=== PATIENT | female | born 1950 | race Hispanic/Latino ===

== ENCOUNTER 2017-02-10 09:16 | Emergency (ER) | payer MEDICARE ==
[2017-02-10 12:15] LABS: Alanine Aminotransferase 12 units/L (7-56); Albumin 3.9 g/dL (3.9-5); Albumin/Globulin Ratio 1.3 %; Alkaline Phosphatase 81 units/L (35-129); Anion Gap 17 mmol/L; BUN/Creatinine Ratio 26.25; Bilirubin,Total 0.2 mg/dL (0.1-1.2); Blood Urea Nitrogen 21 mg/dL (7-17); Calcium 9.4 mg/dL (8.4-10.2); Carbon Dioxide 25 mmol/L (22-30); Chloride 100.9 mmol/L (98-107); Glucose 101 mg/dL (65-100); Lipase 35 units/L (13-60); Potassium 5.1 mmol/L (3.6-5.0); Sodium 138 mmol/L (137-145)
[2017-02-10 12:27] LABS: Basophils % (Auto) 1.2 % (0.0-1.8); Eosinophils % (Auto) 2.4 % (0.0-4.3); Hematocrit 39.9 % (30.3-42.9); Hemoglobin 12.9 gm/dl (10.1-14.3); Mean Corpuscular HGB Conc 32 % (30-34); Mean Corpuscular Volume 78 fl (79-97); Platelet Count 254 K/mm3 (140-440); Red Blood Count 5.14 M/mm3 (3.65-5.03); Red Cell Distribution Width 13.6 % (13.2-15.2)
[2017-02-10 12:33] LABS: Bilirubin,Urine NEG (Negative); Blood,Urine MOD (Negative); Ketones,Urine NEG (Negative); Leukocyte Esterase,Urine MOD (Negative); Nitrite,Urine NEG (Negative); Protein,Urine <15 mg/dL mg/dL (Negative); Urobilinogen,Urine < 2.0 mg/dL (<2.0)
[2017-02-10 13:02] LABS: Mean Corpuscular Hemoglobin 25 pg (28-32)
--- NOTE | 2017-02-10 17:13 | Emergency Department Report ---
HPI - General Chief Complaint: Abdominal Pain Time Seen by Provider: 02/10/17 16:31 - HPI HPI: Room 3 The patient is a 66-year-old female presenting with chief complaint of abdominal pain. Patient states for the past 5 days she's had intermittent pain in the right lower quadrant. The patient occasionally has pain in the right flank. Patient describes pain as sharp at times and all others. Patient admits to nausea but denies vomiting. Patient admits to occasional dysuria but denies hematuria or fever. Patient currently gives her pain a score of 4/10. Patient also admits to constant rectal itching for the past 4 days Location: [see above] Duration: [see above] Quality: [see above] Severity: 4/10 Modifying factors: [see above] Context: [see above] Mode of transportation: Patient drove herself to the emergency department and there are no visitors present ED Past Medical Hx - Past Medical History Previous Medical History?: Yes Hx Headaches / Migraines: Yes Hx Asthma: Yes Additional medical history: chronic bronchitis - Surgical History Past Surgical History?: Yes Additional Surgical History: back surgery, hysterectomy, nasal surgery, bladder surgery, cataract removal both eyes - Family History Family history: no significant - Social History Smoking Status: Former Smoker (none 15 years) Substance Use Type: None - Medications Home Medications: Home Medications Medication Instructions Recorded Confirmed Last Taken Type Butalb/Acetamin/Caff 50-325-40 1 each PO Q4H PRN #20 tablet 12/05/13 Unknown Rx [Fioricet] Nitrofurantoin Chase/M-Cryst 100 mg PO Q12HR #14 capsule 10/04/15 Unknown Rx [Macrobid CAP] Hydrocortisone [Anucort-HC SUPPOS] 25 mg RC BID #20 supp.rect 02/10/17 Unknown Rx Ibuprofen [Motrin 800 MG tab] 800 mg PO Q8HR PRN #20 tablet 02/10/17 Unknown Rx Ondansetron [Zofran ODT TAB] 8 mg PO Q8HR #20 tab.rapdis 02/10/17 Unknown Rx Sulfamethoxazole/Trimethoprim 1 each PO BID #14 tablet 02/10/17 Unknown Rx [Bactrim DS TAB] traMADol [Ultram] 50 mg PO Q6HR PRN #14 tablet 02/10/17 Unknown Rx ED Review of Systems ROS: Stated complaint: STOMACH PAIN/RETURNING ITCH Other details as noted in HPI Comment: All other systems reviewed and negative Constitutional: denies: chills, fever Eyes: denies: eye pain, eye discharge, vision change ENT: denies: ear pain, throat pain Respiratory: denies: cough, shortness of breath, wheezing Cardiovascular: denies: chest pain, palpitations Endocrine: no symptoms reported Gastrointestinal: abdominal pain, nausea. denies: vomiting Genitourinary: denies: urgency, dysuria, discharge Musculoskeletal: back pain Skin: denies: rash, lesions Neurological: denies: headache, weakness, paresthesias Psychiatric: denies: anxiety, depression Hematological/Lymphatic: denies: easy bleeding, easy bruising Physical Exam - Physical Exam Vital Signs: Vital Signs 02/10/17 09:42 Temperature 98.7 F Pulse Rate 70 Respiratory 20 Rate Blood Pressure 116/77 O2 Sat by Pulse 97 Oximetry Physical Exam: GENERAL: The patient is well-developed well-nourished female lying on stretcher not appearing to be in acute distress. [] HEENT: Normocephalic. Atraumatic. Extraocular motions are intact. Patient has moist mucous membranes. NECK: Supple. Trachea midline CHEST/LUNGS: Clear to auscultation. There is no respiratory distress noted. HEART/CARDIOVASCULAR: Regular. There is no tachycardia. There is no gallop rub or murmur. ABDOMEN: Abdomen is soft, with tenderness to palpation in the right lower quadrant, right upper quadrant. Patient has normal bowel sounds. There is no abdominal distention. SKIN: There is no rash. There is no edema. There is no diaphoresis. NEURO: The patient is awake, alert, and oriented. The patient is cooperative. The patient has normal speech MUSCULOSKELETAL: There is no tenderness. There is no evidence of acute injury. Rectal: No fissures or tears seen. ED Course Vital Signs 02/10/17 09:42 Temperature 98.7 F Pulse Rate 70 Respiratory 20 Rate Blood Pressure 116/77 O2 Sat by Pulse 97 Oximetry ED Medical Decision Making - Lab Data Result diagrams: 02/10/17 11:35 02/10/17 11:35 Laboratory Tests 02/10/17 02/10/17 02/10/17 11:35 11:35 11:35 WBC 7.0 RBC 5.14 H Hgb 12.9 Hct 39.9 MCV 78 L MCH 25 L MCHC 32 RDW 13.6 Plt Count 254 Lymph % (Auto) 40.4 H Chase % (Auto) 7.6 H Eos % (Auto) 2.4 Baso % (Auto) 1.2 Lymph # 2.8 Chase # 0.5 Eos # 0.2 Baso # 0.1 Seg Neutrophils % 48.4 Seg Neutrophils # 3.4 Sodium 138 Potassium 5.1 H Chloride 100.9 Carbon Dioxide 25 Anion Gap 17 BUN 21 H Creatinine 0.8 Estimated GFR > 60 BUN/Creatinine Ratio 26.25 Glucose 101 H Calcium 9.4 Total Bilirubin 0.2 AST 15 ALT 12 Alkaline Phosphatase 81 Total Creatine Kinase 53 Total Protein 7.0 Albumin 3.9 Albumin/Globulin Ratio 1.3 Lipase 35 Urine Color Urine Turbidity Urine pH Ur Specific [place] Urine Protein Urine Glucose (UA) Urine Ketones Urine Blood Urine Nitrite Urine Bilirubin Urine Urobilinogen Ur Leukocyte Esterase Urine WBC (Auto) Urine RBC (Auto) 02/10/17 Unknown WBC RBC Hgb Hct MCV MCH MCHC RDW Plt Count Lymph % (Auto) Chase % (Auto) Eos % (Auto) Baso % (Auto) Lymph # Chase # Eos # Baso # Seg Neutrophils % Seg Neutrophils # Sodium Potassium Chloride Carbon Dioxide Anion Gap BUN Creatinine Estimated GFR BUN/Creatinine Ratio Glucose Calcium Total Bilirubin AST ALT Alkaline Phosphatase Total Creatine Kinase Total Protein Albumin Albumin/Globulin Ratio Lipase Urine Color Yellow Urine Turbidity Clear Urine pH 6.0 Ur Specific [place] 1.018 Urine Protein <15 mg/dl Urine Glucose (UA) Neg Urine Ketones Neg Urine Blood Mod Urine Nitrite Neg Urine Bilirubin Neg Urine Urobilinogen < 2.0 Ur Leukocyte Esterase Mod Urine WBC (Auto) 5.0 Urine RBC (Auto) 4.0 - Radiology Data Radiology results: report reviewed (CT abdomen and pelvis), image reviewed (CT abdomen and pelvis) CT abdomen and pelvis (read by radiologist)-acute intra-abdominal process noted. - Differential Diagnosis appendicitis, renal colic, pyelonephritis Critical care attestation.: If time is entered above; I have spent that time in minutes in the direct care of this critically ill patient, excluding procedure time. ED Disposition Clinical Impression: Abdominal pain, UTI (urinary tract infection), Dysuria, Pruritus ani Disposition: DISCHARGED TO HOME OR SELFCARE Is pt being admited?: No Does the pt Need Aspirin: No Condition: Stable Instructions: Abdominal Pain (ED) Additional Instructions: Return to the emergency department immediately should you develop worsening symptoms, fever, inability to tolerate food or liquid or any other concerns. Prescriptions: Hydrocortisone [Anucort-HC SUPPOS] 25 mg RC BID #20 supp.rect Ibuprofen [Motrin 800 MG tab] 800 mg PO Q8HR PRN #20 tablet PRN Reason: Pain Ondansetron [Zofran ODT TAB] 8 mg PO Q8HR #20 tab.rapdis Sulfamethoxazole/Trimethoprim [Bactrim DS TAB] 1 each PO BID #14 tablet traMADol [Ultram] 50 mg PO Q6HR PRN #14 tablet PRN Reason: Pain Referrals: JOCY BOLAÑOS MD [Primary Care Provider] - 3-5 Days VINH COLLINS MD [Staff Physician] - 3-5 Days (Dr. Collins is a churn driller helper. Please follow up with him for further evaluation) Time of Disposition: 18:08
--- NOTE | 2017-02-10 18:01 | Cat Scan Report ---
FINAL REPORT EXAM: CT ABDOMEN PELVIS W CON HISTORY: right-sided abdominal pain TECHNIQUE: Standard enhanced CT of the abdomen and pelvis at 2.5 mm axial increments. Delayed imaging through the kidneys and bladder were obtained. Coronal and sagittal reconstruction was also performed. Contrast: 100 cc Omnipaque 300 given IV. PRIORS: None. FINDINGS: Within the abdomen, the liver, spleen, pancreas, gallbladder, adrenal glands, and kidneys are unremarkable. No evidence for retroperitoneal or pelvic lymphadenopathy is seen. The bowel loops have normal caliber. No soft tissue mass, fluid collection, inflammatory change, or free air is seen within the abdomen or pelvis. The appendix is normal. Mild calcification of the aorta is seen. Scattered diverticuli in the sigmoid colon are noted without active diverticulitis. Within the pelvis, the bladder is unremarkable. The uterus is surgically absent. No evidence for mass or lymphadenopathy is seen in the pelvis. Images through the upper abdomen include the lung bases which are expanded and clear. Bony structures show a plate and screw device at L5-S1 anteriorly. IMPRESSION: No acute intra-abdominal process noted. Diverticulosis of the sigmoid colon is seen without active diverticulitis.
[2017-02-10 18:54] VITALS: BP 148/88
== END 2017-02-10 18:52 | disposition home or self-care (01) ==
LOC: ED 09:16
DX: N39.0 Urinary tract infection, site not specified (principal); R30.0 Dysuria; L29.9 Pruritus, unspecified; R10.31 Right lower quadrant pain; G43.909 Migraine, unspecified, not intractable, without status migrainosus; J45.909 Unspecified asthma, uncomplicated; J42 Unspecified chronic bronchitis; Z87.891 Personal history of nicotine dependence
CPT/HCPCS: 36415; 74177; 80053; 81001; 82550; 83690; 85025; 99284; Q9967

== ENCOUNTER 2017-02-27 12:36 | Outpatient (CLI) | payer MEDICARE ==
--- NOTE | 2017-02-27 13:56 | Mammography Report ---
BONE DENSITY STUDY: DEFINITIONS: BMD = Bone Mineral Density T-score = BMD related to mean peak bone mass of young adult (mean expressed in Standard Deviation) Z-score = Age matched BMD expressed in SD World Health Organization (WHO) Diagnostic Criteria Normal T-score > -1 SD Osteopenia T-score between -1 and -2.4 SD Osteoporosis T-score -2.5 SD or below FINDINGS: The weighted average BMD of lumbar spine L1-L4 is 0.824 with a T-score of -2.0. The weighted average BMD of hip is 0.749 with a T-score of -1.6. IMPRESSION: The patient's T-score is diagnostic for osteopenia and average relative risk for fracture. NOTE: BMD is not the only risk factor for fracture; also consider factors such as the patient's age, risk of falling, previous osteoporotic fracture, family history of osteoporotic fractures, current smoker, and low body weight. Freeman's triangle is a region of interest in femur, predominantly of trabecular bone. It is not a true anatomic site, and [facility] does not recommend its use clinically.
== END 2017-02-27 12:37 | disposition home or self-care (01) ==
LOC: MAMMO 12:36
PROVIDERS: ATTEND Family Medicine
DX: M81.0 Age-related osteoporosis without current pathological fracture (principal); M85.80 Other specified disorders of bone density and structure, unspecified site
CPT/HCPCS: 77080